=== PATIENT | female | born 1965 | race Caucasian/White ===

== ENCOUNTER 2021-03-20 10:11 | Emergency (ER) | payer OTHER ==
[~2021-03-20] VITALS: Ht 162.6 cm; Wt 65.8 kg
[~2021-03-20 10:11] MED LIST: ALBUTEROL SULF8.5 GM INH; COMBIVENT RESPIM4 GM INH; LEVOFLOXACIN500 MG PO; LISINOPRIL10 MG PO; PAROXETINE HCL20 MG PO; PREDNISONE10 MG PO; SYNTHROID88 MCG PO
[2021-03-20] MEDS ORDERED: LEVOTHYROXINE125 MCG PO (10:29)
--- NOTE | 2021-03-20 20:28 | EKG ---
[facility] [address] [place], [place] [address] Signed Normal sinus rhythm Normal ECG No previous ECGs available Confirmed by CAROL WARREN MD [id number] on 03/20/2021 8:28:33 PM Electronically Signed By: CAROL WARREN MD 03/20/212027 PATIENT NAME: CARLY RITTER Electrocardiogram DATE OF : 67 PHYSICIAN: CAROL WARREN MD REPORT #: [id number] REPORT IS CONFIDENTIAL AND NOT TO BE RELEASED WITHOUT AUTHORIZATION
== END 2021-03-20 11:36 | disposition home or self-care (01) ==
LOC: ED 10:11
DX: F41.9 Anxiety disorder, unspecified (principal); I10 Essential (primary) hypertension; Z88.1 Allergy status to other antibiotic agents; Z79.52 Long term (current) use of systemic steroids; Z79.899 Other long term (current) drug therapy; Z87.891 Personal history of nicotine dependence
CPT/HCPCS: 93005; 93010; 99284-25